=== PATIENT | female | born 1970 | race Caucasian/White ===

== ENCOUNTER 2019-10-14 22:55 | Emergency (ER) | payer BC, SELFPAY ==
--- NOTE | ~2019-10-14 | XR_ITS ---
EXAMINATION: XR chest 2V DATE: 10/15/2019 00:20 INDICATION: Hypertension TECHNIQUE: Frontal and lateral views of the chest are obtained COMPARISON: None available FINDINGS: The lungs are free of acute opacities. There is no pleural effusion or pneumothorax. The ca rdiomediastinal silhouette is normal. There is mild thoracic spondylosis. IMPRESSION: 1. No acute cardiopulmonary abnormality. Reviewed, dictated and finalized at location A. OW SHADE INSTALLER
[2019-10-14 23:13] VITALS: BP 185/110; PULSE 66; RESP 14; TEMP 36.7; O2SAT 98
[2019-10-14 23:21] VITALS: BP 146/88; PULSE 65; RESP 13; O2SAT 97
--- NOTE | 2019-10-14 23:44 | ECG_ITS ---
Measurements Intervals [place] Rate: 59 P: 44 SC: 156 QRS: 41 QRSD: 86 T: -12 QT: 391 QTc: 390 Interpretive Statements SINUS BRADYCARDIA CANNOT RULE OUT SEPTAL INFARCT, AGE INDETERMINATE ST-T WAVE ABNORMALITY IN INFERIOR LEADS- CONSIDER ISCHEMIA ABNORMAL ECG Electronically Signed On 10-15-2019 7:16:04 SR. PAYROLL MANAGER by Aleksandr Fierro D.O.
[2019-10-15] VITALS: BP 132/77; PULSE 70; RESP 17; O2SAT 95
[2019-10-15 00:08] LABS: Hematocrit 35.3 % (35.0-49.0); Mean Corpuscular Hemoglobin 29.9 pg (27.0-31.0); Mean Platelet Volume 9.9 fl (9.2-11.8); Platelet Count Result 223 K/mm3 (150-420); Red Blood Count 4.01 M/mm3 (4.20-5.40); Red Cell Distribution Width 11.8 % (11.6-14.4); White Blood Count 5.1 K/mm3 (4.8-10.8)
[2019-10-15] MEDS: KETOROLAC (*BKC) 60 MG/2 ML VIAL IM (00:15)
--- NOTE | 2019-10-15 00:22 | ED.HA ---
HPI - Headache General Chief Complaint: Headache Stated Complaint: headache, high blood pressure Source: patient and family Mode of arrival: ambulatory Limitations: no limitations History of Present Illness HPI Narrative: Patient presents with the headache bandlike and frontal a throbbing sensation with no nausea vomiting no neck pain or neck stiffness no chest pain or shortness of breath no fever chills, had an episode earlier with blood pressure systolic around 200/over 110, with no chest pain no shortness of breath no abdominal pain patient took Tylenol earlier for headache she rated about 8/10 subsequent to taking Tylenol she rated her pain at about a 4/10 no light sensitivity no nausea or vomiting. MD elicited complaint: headache Onset (ago): hour(s) Onset description: gradually Location: frontal Severity: moderate Pain scale (0-10): 4 Quality & Timing: throbbing, squeezing and similar to previous headaches Exacerbating factors: exertion Relieving factors: NSAIDs Context: occurred at rest Related Data Home Medications Medication Instructions Recorded Confirmed metoprolol succinate 12.5 mg PO BID 10/15/19 10/15/19 potassium chloride 10 meq PO BID 10/15/19 10/15/19 thyroid (pork) [[place] Thyroid] 30 mg PO DAILY 10/15/19 10/15/19 thyroid (pork) [[place] Thyroid] 60 mg PO DAILY 10/15/19 10/15/19 Allergies Allergy/AdvReac Type Severity Reaction Status Date / Time No Known Allergies Allergy Mild Verified 02/06/10 11:59 Review of Systems Review of Systems: All systems reviewed & are unremarkable except as noted in HPI and below PMFSH Past Medical History Medical History (Updated 10/15/19 @ 00:50 by Dionisio Krueger MD) Hypothyroidism (acquired) Exam Const: General: no acute distress and alert Nutritional Appearance: well nourished Orientation/consciousness: patient oriented x3 HENMT: Head: normal to inspection Eyes: Conjunctivae: conjunctivae normal Pupils: Equal, round and reactive pupils present EOM: EOMs intact bilaterally Neck: Neck: normal visual inspection and no lymphadenopathy Chest: Chest palpation & inspection: normal inspection of the chest Resp: Effort & Inspection: normal respiratory effort Auscultation: clear to auscultation bilaterally Cardio: Rate: regular rate and bradycardic Rhythm: regular rhythm GI: GI Palp: Yes Soft to palpation : General: Yes no CVA tenderness Back/Spine/Pelvis: Back: no CVA tenderness Skin: General skin exam: normal color Rashes: no rashes Neuro: General: patient oriented x3, moves all extremities, no meningeal signs and no focal motor deficits Speech: normal speech Extrem: General: normal to inspection Psych: Affect: Anxious affect present Course Course Emergency Course: reassessment of patient's current headache about a 2/10 blood pressure has come down considerably initially on presentation in the ER blood pressure 185/110, currently are blood pressure 130/76, patient feels more comfortable headache less intense. Patient feels much better with some pain relief, after reviewing her arm laboratory results patient handed thyroid level that was 0.13 and talked to the patient about following up with her ice crusher to adjust her thyroid medication. Vital Signs Vital signs: Vital Signs Temperature 36.7 C 10/14/19 23:13 Pulse Rate 66 10/14/19 23:13 Respiratory Rate 14 10/14/19 23:13 Blood Pressure 185/110 H 10/14/19 23:13 Pulse Oximetry 98 10/14/19 23:13 Temperature 36.7 C 10/14/19 23:13 Pulse Rate 67 10/15/19 00:24 Respiratory Rate 18 10/15/19 00:24 Blood Pressure 130/76 10/15/19 00:24 Pulse Oximetry 97 10/15/19 00:24 MDM - Headache Lab Data Attestation: I reviewed the patient's lab results. Result diagrams: 10/15/19 00:04 10/15/19 00:04 Labs: Lab Results 10/15/19 10/15/19 Range/Units 00:04 00:04 WBC 5.1 (4.8-10.8) K/mm3 RBC 4.01 L (4.20-5.40)
[2019-10-15 00:24] VITALS: BP 130/76; PULSE 67; RESP 18; O2SAT 97
--- NOTE | 2019-10-15 00:26 | PC.NURSE ---
REPORT PROVIDED TO ELIEZER NAYLOR
[2019-10-15 00:33] LABS: Alanine Aminotransferase 24 U/L (14-59); Alkaline Phosphatase 73 U/L (46-116); Aspartate Amino Transferase 14 U/L (15-37); Bilirubin,Total 0.3 mg/dL (0.00-1.00); Blood Urea Nitrogen 16 mg/dL (7-18); Calcium 9.4 mg/dL (8.5-10.1); Carbon Dioxide 27 mmol/L (21-32); Chloride 105 mmol/L (98-108); Estimated CRCL calculation 74 ml/min; Estimated Glomerular Filt Rate > 60; Glucose 113 mg/dL (70-99); Osmolality Calculated 294 mOsm/kg (285-295); Sodium 141 mmol/L (136-145); Thyroid Stimulating Hormone 0.13 uIU/mL (0.36-3.74); Total Protein 7.4 g/dL (6.4-8.2)
[2019-10-15 00:51] VITALS: BP 131/83; PULSE 75; RESP 18; O2SAT 96
== END 2019-10-15 00:57 | disposition home or self-care (01) ==
PROVIDERS: Emergency Provider Emergency Medicine; PCP Family Medicine
DX: E03.9 Hypothyroidism, unspecified (principal); G44.209 Tension-type headache, unspecified, not intractable; I10 Essential (primary) hypertension
CPT/HCPCS: 36415; 71046; 80053; 84443; 85027; 93005; 96372; 99283; J1885

== ENCOUNTER 2020-12-13 08:03 | Outpatient (CLI) | payer BC, SELFPAY | END 2020-12-13 08:04 | disposition home or self-care (01) | LOC: CHSLAB 08:06 | PROVIDERS: PCP Family Medicine; Visit Provider Internal Medicine | DX: Z52.9 Donor of unspecified organ or tissue (principal) | CPT/HCPCS: 99199 ==

== ENCOUNTER 2024-10-22 19:22 | Outpatient (CLI) | payer BC, SELFPAY ==
--- OUTSIDE RECORDS SUMMARY | 2024-10-22 19:26 | XMS_ITS | Encounter Summary ---
Author Organization [facility] Address [facility] [place] [address] Care Team Providers Care Contract Assistant Name Role Phone Siva Amador MD Primary Care Provider Silvio Zepeda DO Unavailable [phone] Encounter Details Date Type Department Care Team (Late st Contact Info) Description 03/18/2023 [employer] Message [facility] [address] [place] [address] [facility] Provider TSH results Social History Tobacco Use Types Packs/Day Years Used Date Smoking Tobacco: Never Smokeless Tobacco: Never Alcohol Use Standard Drinks/Week Comments Yes 0 (1 standard drink = 0.6 oz pur e alcohol) seldom Comments No Sex and Gender Information Value Date Recorded Sex Assigned at Female 10/08/2024 8:59 AM ASSISTANT QUALITY MANAGER Legal Sex Female 10:24 PM CDT Gender Identity Not on file Sexual Orientation Not on file Occupation Industry Job Start Date Job End Date Not on file Not on file Not on file Not on file documented as of this encounter Plan of Treatment Not on file documented as of this encounter Visit Diagnoses Not on filedocumented in this encounter Care Teams Contract Assistant Relationship Specialty Start Date End Date S[place] [address] PCP - General FAMILY PRACTICE 05/27/18 Sil[place] [address] [address] Consulting Physician CARDIOVASCULAR DISEASE 08/28/22 documented as of this encounter
--- OUTSIDE RECORDS SUMMARY | 2024-10-22 19:26 | XMS_ITS | Clinical Summary ---
Author Organization [facility] Address [address] [place] [address] Care Team Providers Care Semiconductor Packages Sealer Name Role Phone Siva Amador MD Primary Care Provider Silvio Zepeda DO Unavailable [phone] Allergies Active Allergy Reactions Criticality Noted Date Comments Amlodipine Other (see comment) 08/29/2022 Back pain Losartan Potassium-Hctz Hives 08/31/2022 Morphine Hallucinations 05/27/2018 Medications magnesium oxide 400 (241.3 Mg) MG tablet Take 1 tablet (400 mg total) by mouth daily. 90 tablet 3 06/07/2018 Active LOT ATTENDANT THYROID 60 MG tablet Take 1 tablet (60 mg total) by mouth daily. 02/21/2022 Active Active Problems Problem Noted Date Diagnosed Date Essential (primary) hypertension Assessment & Plan (08/31/2022 4:29 PM HOME HEALTH CAREGIVER): Not clear that the patient has essential hypertension and that her blood pressure values are not just a response to circumstances. She will validate accuracy with her electronic device at home with a manual blood pressure reading and then log her blood pressures over the next month or 2, contacting me with those values. Paroxysmal atrial fibrillation ([facility]/H[facility]/HCC) Assessment & Plan (03/12/2023 10:38 AM CDT): The patient's recurrence of tacky arrhythmia we will reassess her thyroid functions. With a bang score of 3 due to age, snoring, and hypertension I will also look for evidence of CANDELARIA. If neither of these are revealing we will continue to observe without change in medical therapy unless her course becomes more frequent. Assessment & Plan (08/31/2022 4:30 PM HOME HEALTH CAREGIVER): The patient has had no evidence for any recurrence of atrial fibrillation. She does have frequent PVCs and heart rates when she has noticed irregularity have typically been in the 70s. For now we will continue to just watch and observe for any evidence of AF. Patient's prior thyroid abnormality seems to have resolved with recent lab work. Resolved Problems Problem Noted Date Diagnosed Date Resolved Date Palpitations 06/22/2018 10/08/2024 Encounters Date Type Department Care Team Description 10/08/2024 9:00 AM HOME HEALTH CAREGIVER Office Visit [facility] [address] [place] [address] Silvio Sanchez MD Follow Up 10/08/2024 Travel 10/07/2024 Telephone [facility] [address] [place] [address] Silvio Sanchez MD Appointment Reminder 09/04/2024 6:56 AM HOME HEALTH CAREGIVER - 09/04/2024 11:59 PM HOME HEALTH CAREGIVER Hospital Encounter [facility] - Mammography [address] [place] [address] Kim Aparicio MD Discharge Disposition: Home or Self Care (Routine Discharge) 09/04/2024 Travel from Last 3 Months Family History Medical History Relation Comments Heart Disease Father Breast Cancer Maternal Aunt 50 Stroke Maternal Grandfather Cancer Mother Colon Cancer Mother Hyperlipidemia Mother Hypertension Mother Relation Status Comments Father Maternal Aunt Maternal Grandfather Mother Social History Tobacco Use Types Packs/Day Years Used Date Smoking Tobacco: Never Smokeless Tobacco: Never Tobacco Cessation:Counseling Given: Not Answered Alcohol Use Standard Drinks/Week Comments Yes 1.7 (1 standard drin k = 0.6 oz pure alcohol) Socially and not always weekly. Comments No Sex and Gender Information Value Date Recorded Sex Assigned at Female 10/08/2024 8:59 AM HOME HEALTH CAREGIVER Legal Sex Female 10:24 PM CDT Gender Identity Not on file Sexual Orientation Not on file Occupation Industry Job Start Date Job End Date Not on file Not on file Not on file Not on file Last Filed Vital Signs Vital Sign Reading Time Taken Comments Blood Pressure 130/86 10/08/2024 9:02 AM HOME HEALTH CAREGIVER Pulse 66 10/08/2024 9:02 AM HOME HEALTH CAREGIVER Temperature 36.4 C (97.6 F) 11/21/2021 5:19 PM HOME HEALTH CAREGIVER Respiratory Rate 16 10/08/2024 9:02 AM HOME HEALTH CAREGIVER Oxygen Saturation 97% 10/08/2024 9:02 AM HOME HEALTH CAREGIVER Inhaled Oxygen Concentration - - Weight 75.8 kg (167 lb) 10/08/2024 9:02 AM HOME HEALTH CAREGIVER Height 170.2 cm (5' 7 ) 10/08/2024 9:02 AM HOME HEALTH CAREGIVER Body Mass Index 26.16 10/08/2024 9:02 AM HOME HEALTH CAREGIVER Plan of Treatment Health Maintenance Due Date Last Done Comments Cervical Cancer Screening Pap Smear (Age 30 to 64) Every 3 Years 1970 Colorectal Cancer Screening Colonoscopy (10 Years) 1970 Annual Physical 1973 Hepatitis C 1988 DTaP, Tdap and Td Vaccines (1 - Tdap) 1989 Hepatitis B Vaccines (1 of 3 - 19+ 3-dose series) 1989 Cervical Cancer Screening Pap with HPV Testing (Age 30 to 64) Every 5 Years 2000 Cervical Cancer Screening with HPV 2000 Zoster Vaccines (1 of 2) 2020 COVID-19 Vaccine (3 - season) 2024 07/11/2021, 06/20/2021 Influenza Adult (#1) 2024 Mammogram Screening 09/04/2026 09/04/2024, 06/14/2023, 04/12/2022, Additional history exists Meningococcal B Vaccine Aged Out No l onger eligible based on patient's age to complete this topic Meningococcal Vaccine Aged Out No nasreen anna eligible based on patient's age to complete this topic Pneumococcal Vaccine: Pediatrics (0 to 5 Years) and At-Risk Patients (6 to 64 Years) Aged Out No longer eligible based on patient's age to complete this topic RSV Immunizations Under 20 Months Aged Out No longer eligible based on patient's age to complete this topic Procedures Procedure Name Priority Date/Time Associated Diagnosis Comments MG SCREENING W VIOLETA GARY DIGI Routine 09/04/2024 7:06 AM HOME HEALTH CAREGIVER Visit for screening mammogram from Last 3 Months Results * MG SCREENING W VIOLETA GARY DIGI (09/04/2024 7:06 AM HOME HEALTH CAREGIVER) Anatomical Region Laterality Modality Breast Bilateral Mammography 09/04/2024 5:19 PM HOME HEALTH CAREGIVER Impressions 09/04/2024 5:23 PM HOME HEALTH CAREGIVER IMPRESSION: No interval features to suggest malignancy. In the absence of clinical symptoms, return for annual screening mammogram due in 1 year. RECOMMENDATION: Routine Screening, Bilateral in 1 year ASSESSMENT: ACR BI-RADS 2 - BENIGN FINDING(S) Ordered By: KIM APARICIO Interpreted By: Sunitha Garcia MD, 09/04/2024 5:19 PM Narrative 09/04/2024 5:23 PM HOME HEALTH CAREGIVER [facility] [place] [id number] [phone] EXAMINATION: BILATERAL SCREENING MAMMOGRAPHY Exam Date: 09/04/2024 6:56 AM CLINICAL INDICATION: 53 years of age female routine screening. Known history of cyst(s). COMPARISON: Screening mammogram(s) 06/09, 04/07, 09/05 TECHNIQUE: Digital CC & MLO views. Tomosynthesis imaging acquisition Study read with the assistance of a computer-aided detection system. TISSUE DENSITY: The breasts are heterogeneously dense, which may obscure small masses. FINDINGS: Few scattered calcifications. Fairly stable glandular pattern with similar asymmetric dense nodular parenchymal patches and nodular densities along with fluctuant waxing waning nodules. Several of the latter compatible with known history of cysts. Overall these appear relatively stable, smaller, and/or have resolved after accounting for differences in technique and weight fluctuations when compared to prior studies dating back 08/03. Several of the nodules have appearance of stable benign morphology lymph nodes as well. No suspicious grouping of microcalcifications, architectural distortion, or new dominant suspicious nodule 3 dimensionally demonstrated in either breast. Kim Aparicio MD MAMMO Final Result from Last 3 Months Insurance Member Subscriber Plan / Payer (Ef fective 2016-Present) Name:STACY MIRANDA Relation to Subscriber:Self Name:Stacy Miranda Payer ID:Not on file Type:Not on file Address: [place] [phone] Care Teams Semiconductor Packages Sealer Relationship Specialty Start Date End Date Siva Amador MD [address] [place] [address] PCP - General FAMILY PRACTICE 05/27/18 Silvio Zepeda DO [address] [place] [address] Consulting Physician CARDIOVASCULAR DISEASE 08/28/22
--- OUTSIDE RECORDS SUMMARY | 2024-10-22 19:26 | XMS_ITS | Encounter Summary ---
Author Organization [facility] Address [facility] [place] [address] Care Team Providers Care Rags Laborer Name Role Phone Siva Amador MD Primary Care Provider [phone] Silvio Zepeda DO Unavailable [phone] Encounter Details Date Type Department Care Team (Late st Contact Info) Description 03/28/2023 Plan[employer] Message [facility] [address] [place] [address] [facility] Provider sleep study Social History Tobacco Use Types Packs/Day Years Used Date Smoking Tobacco: Never Smokeless Tobacco: Never Alcohol Use Standard Drinks/Week Comments Yes 0 (1 standard drink = 0.6 oz pur e alcohol) seldom Comments No Sex and Gender Information Value Date Recorded Sex Assigned at Female 10/08/2024 8:59 AM ASSISTANT PROFESSOR OF RELIGION Legal Sex Female 10:24 PM CDT Gender Identity Not on file Sexual Orientation Not on file Occupation Industry Job Start Date Job End Date Not on file Not on file Not on file Not on file documented as of this encounter Plan of Treatment Not on file documented as of this encounter Visit Diagnoses Not on filedocumented in this encounter Care Teams Rags Laborer Relationship Specialty Start Date End Date Siva [place] [address] PCP - General FAMILY PRACTICE 05/27/18 Silv[place] [address] [address] [address] Consulting Physician CARDIOVASCULAR DISEASE 08/28/22 documented as of this encounter
--- OUTSIDE RECORDS SUMMARY | 2024-10-22 19:26 | XMS_ITS | Data Portability ---
Author Organization [facility], [address] ([place]) Address [address] [place] [address] Care Team Providers Care [employer] Service Consultant Name Role Phone PEGGILL Primary Care Provider [phone] Assessment Encounter Date Assessment Date Assessment LastModified by Organization Details LastModified Time 10/15/2024 10/15/2024 1. Psoriasis: We discussed the diagnosis and treatment alternatives.[place] cortisone cream was prescribed . She will use this bid for one week, then daily for one week to the ears. She may continue triamcinolone cream bid prn to body, clobetasol solution bid prn to scalp. The patient was instructed to call if not improving with the prescribed regimen. Skin care was discussed. The risks of detention use of topical steroids including thinning of the skin, striae formation, and hypopigmentation were discussed. I stressed that this medication should only be used as directed. Call in 2 weeks with update, return in 1 year for recheck with Dr Peterson. Stacy left without further questions or concerns. [email or web address] Not available 10/15/2024 13:18:44 Plan of Treatment Reminders Order Date Submit Date Provider Last Modified By Organization Details Last Modified Time Details Appointments [facility] Patient 10.EST 2025 08:30A M Dr. Yamilet Peterson Not available Not available Not available Lab None recorded . Referral None recorded . Procedures None recorded . Surgeries None recorded . Imaging None recorded . Medication Orders hydrocor tisone 2.5 % topical cream [email or web address] [facility] #[id number], [address] [place], [address], 10/15/2024 10:03:36 Patient TargetsNo targets recorded. Patient InstructionsNo instructions recorded. Reason for Referral None Reported. Problems Name Problem SNOMED Code Status Onset Date Resolution Date Notes Provider Name and Address Organization Details Recorded Time Plaque psoriasis 821901644 Active 024 Stacey Valdez [facility] 4 11:42:27 Psoriasis 3084508 Active 025 Krys Gordon [facility], [facility] 5 09:48:33 Problem Notes None recorded. Procedures Surgical History Date Name Laterality Status Provider Name and Address Organization Details Recorded Time delivery completed Not Available Health Note 10/08/2024 21:36:29 Colonoscopy with biopsy completed Not Available Health Note 10/08/2024 21:36:29 Imaging Results None recorded. Procedure Notes None recorded. Medical Equipment None Reported. Allergies Allergen ID Allergen Name Allergen Category Reaction Reaction Severity Criticality Documentation Date Start Date Code Code System Note Provider Name and Address Organization Details Recorded Time 5473366 morphine medicatio n Not available Not available Not available 10/17/20232014 7052 RxNorm Comme nt: React ion Date: 03 Dec 2007 ; Not Available Not Available Not Available Medications Name Sig Start Date Stop Date Status Note LastModified by Organization Details LastModified Time amoxicillin 500 mg capsule TAKE 1 CAPSULE BY MOUTH THREE TIMES A DAY FOR 7 DAYS active Not Available Not Available N ot Available neomycin-hanna ymyxin-hydro harvinder 3.5 mg/mL-10,000 unit/mL-1 % ear solution TAKE 4 DROPS (OTIC (EAR) - BILATERALLY ) 3 TIMES PER DAY FOR 7 DAYS active Not Available Not Available No t Available fluconazole 150 mg tablet TAKE ONE TABLET BY MOUTH AT ONSET OF SYMPTOMS. MAY REPEAT IN 72 HOURS IF NEEDED. active Not Available Not Available N ot Available sulfamethoxa zole 800 mg-trimethop rim 160 mg tablet TAKE 1 TABLET BY MOUTH TWICE A DAY FOR 3 DAYS active Not Available Not Available No t Available triamcinolon e acetonide 0.1 % topical cream APPLY SPARINGLY AND MASSAGE IN TWICE DAILY. active Not Available Not Available No t Available hydrocortiso ne 2.5 % topical cream APPLY A THIN LAYER TO THE AFFECTED AREA(S) BY TOPICAL ROUTE 2 TIMES PER DAY NEEDED. 2024 active Not Available Not Available Not Avai lable clobetasol 0.05 % scalp solution APPLY TO AFFECTED AREA OF SCALP TOPICALLY TWICE A DAY IN THE MORNING AND IN THE EVENING NEEDED active Not Available Not Available No t Available nitrofuranto in monohydrate/ macrocrystal s 100 mg capsule TAKE 1 CAPSULE (ORAL) 2 TIMES PER DAY FOR 5 DAYS MUST ADMINISTER WITH A MEAL/FOOD active Not Available Not Available No t Available MACHINE SILVER [employer]IPPER Thyroid 60 mg tablet TAKE 1 TABLET ONCE DAILY active Not Available Not Available No t Available MACHINE SILVER [employer]IPPER Thyroid 15 mg tablet TAKE 3 TABLETS BY MOUTH IN THE MORNING AND 2 TABLETS BY MOUTH AT NIGHT active Not Available Not Available No t Available Vitals None Recorded Social History Question Answer Notes LastModified by Organizat ion Details LastModified Time Tobacco Smoking Status Never Smoker Not Available Health Note 10/08/2024 21:36:30 Do You Have An Advance Directive? No [email or web address] Information not available 10/08/2024 What Is Your Level Of Alcohol Consumption? Occasional [email or web address] Information not available 10/08/2024 How Many Times Per Week Do You Consume Alcohol? Less Than 1 Time Per Week [email or web address] Information not available 10/08/2024 What Is Your Level Of Caffeine Consumption? Occasional [email or web address] Information not available 10/08/2024 Are You Currently Employed? 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 3-4 Times Per Week [email or web address] Information not available 10/08/2024 What Was The Date Of Your Most Recent Tobacco Screening? 10/15/2024 [email or web address] Information not available 10/08/2024 What Is Your Relationship Status? [email or web address] Information not available 10/08/2024 Do You Use Any Illicit Or Recreational Drugs? No [email or web address] Information not available 10/08/2024 Sex: Unknown Functional Status Question Answer Note LastModified by Organization D etails LastModified Time What is your exercise level? Moderate [email or web address] Information not available 10/08/2024 Mental Status None recorded. Family History Relationship Description Onset Age of this Age Resolved Age Notes LastModified by Organization Details LastModified Time Mother Family history of malignant neoplasm [email or web address] Not available 2024 21:36:29 Brother Family history of malignant neoplasm [email or web address] Not available 2024 21:36:29 Maternal Grandfather Cerebrovascu lar accident [email or web address] Not available 21:36:29 Medical History Condition Response Attention-deficit Hyperactivity Disorder N High Blood Pressure N Thyroid Problems Y COPD N Depression N Anemia N Diabetes N Anxiety Disorder N Bleeding Disorder N Arthritis N Hyperlipidemia N Cancer N Stroke N Asthma N Seizures N Heart Disease N Fibromyalgia N Osteoporosis N Kidney Disease N Gynecological HistoryNo gynecological history recorded. Obstetrics History GPAL:G 0 P 0 0 0 0 Past Encounters Encounter ID Performer Location Encounter Start Date Encounter Closed Date Diagnosis/Indication Diagnosis SNOMED-CT Code Diagnosis ICD10 Code Diagnosis Note [id number] [facility] ([place]) [address] [place] [address] [place] [address] 10/15/2024 09:11:28 10/15/2024 09:48:50 Psoriasis 5573661 L40.9 Health Concerns Section Related Observation LastModified by Organization Detai ls LastModified Time None Recorded Concern Status LastModified by Organization Details LastModified Time None Recorded Advance Directives Directive N: Payers Encounter Date Sequence Insurance Name Policy Number Policy Johnson Covered Member ID Johnson Member ID Guarantor Name 10/15/2024 1 [place] [id number] Stacy Pleitez Oleg [id number] Stacy M Oleg Notes Date Note Type Note Provider Name and Address Organization Details Recorded Time 10/15/2024 text/html [facility] YesDate last seen: 10/15/23Ms. Oleg presents today for a recheck of psoriasis. Date last seen for psoriasis: same as aboveMedications most recently prescribed for psoriasis and their effect: Clobetasol, HydrocortisoneOTC products/moisturizers currently used for psoriasis: NoneCurrent areas of involvement: elbows, earsProgression of psoriasis since last visit: flaring todayAssociated symptoms: itching-mildJoint pain: NoJoint swelling: NoUse of natural sunlight or tanning beds for psoriasis: No Frequent infections: No Other concerns: No Fernando Valentin PA-C [facility] [place] [address], [phone], [facility] 10/15/2024 13:19:00 OBGyn Episode No OBEpisode recorded.
[2024-10-22 21:03] LABS: Thyroid Stimulating Hormone Reflex 8.97 u/IU/mL (0.36-3.74)
[2024-10-22 21:26] LABS: Free T4 Free Thyroxine Reflex 0.52 ng/dL (0.76-1.46)
== END 2024-10-22 19:23 | disposition home or self-care (01) ==
LOC: CHSLAB 19:24
PROVIDERS: PCP Family Medicine; Visit Provider Obstetrics & Gynecology
DX: Z00.00 Encounter for general adult medical examination without abnormal findings (principal)
CPT/HCPCS: 36415; 84439; 84443